=== PATIENT | male | born 1955 | race Caucasian/White ===

== ENCOUNTER 2017-02-15 21:54 | Emergency (ER) | payer MEDICAID, OTHER ==
[~2017-02-15] VITALS: Ht 180.3 cm; Wt 93.5 kg
[~2017-02-15 21:54] MED LIST: AMLODIPINE; LOSARTAN; PRAVASTATIN
[2017-02-15 22:02] VITALS: Ht 180.3 cm; Wt 93.5 kg
[2017-02-16] MEDS ORDERED: SOD CHLORIDE 0.9% 500 ML IV STA (01:09)
[2017-02-16] MEDS ORDERED: ONDANSETRON 4 MG INJ IV STA (01:09)
[2017-02-16] MEDS ORDERED: morphine 4 MG/ML VIAL IV STA (01:09)
[2017-02-16 01:50] LABS: ADD SCAN DIFF NO
[2017-02-16 01:57] LABS: BASOPHILS % 0.5 % (0.0-2.0); EOSINOPHILS # 0.2 10^3/ul (0.0-0.5); EOSINOPHILS % 2.7 % (0.0-7.0); HEMATOCRIT 40.7 % (42.0-52.0); HEMOGLOBIN 13.2 g/dl (14.0-18.0); MEAN CORPUSCULAR HEMOGLOBIN 26.2 pg (29.0-33.0); MEAN CORPUSCULAR HGB CONC 32.4 g/dl (32.0-37.0); MEAN CORPUSCULAR VOLUME 80.8 fl (82.0-101.0); MEAN PLATELET VOLUME 10.7 fl (7.4-10.4); MONOCYTE # 0.7 10^3/ul (0.3-0.9); MONOCYTES % 8.9 % (0.0-11.0); NEUTROPHIL # 4.7 10^3/ul (1.6-7.5); NEUTROPHILS % 61.6 % (39.0-77.0); PLATELET COUNT 329 10^3/UL (140-415); RED BLOOD COUNT 5.04 10^6/ul (4.70-6.10); RED CELL DISTRIBUTION WIDTH 13.7 % (11.5-14.5); WHITE BLOOD COUNT 7.6 10^3/ul (4.8-10.8)
[2017-02-16] MEDS ORDERED: OMEP20CA16 PO (02:00)
[2017-02-16] MEDS ORDERED: HYDR-902 PO (02:00)
[2017-02-16] MEDS ORDERED: ALPR0.5T6 PO (02:00)
[2017-02-16] MEDS ORDERED: PRAV20TA63 PO (02:00)
[2017-02-16] MEDS ORDERED: AMLO-147 PO (02:00)
[2017-02-16 02:32] LABS: ALBUMIN 4.7 g/dl (3.3-4.9); CHLORIDE 102 mmol/L (97-110); POTASSIUM 4.3 mmol/L (3.5-5.1); SODIUM 140 mmol/L (135-144)
[2017-02-16 02:34] LABS: CREATININE 0.97 mg/dl (0.61-1.24)
[2017-02-16 02:35] LABS: ALANINE AMINOTRANSFERASE 29 IU/L (13-69); ALBUMIN/GLOBULIN RATIO 1.42; ALKALINE PHOSPHATASE 85 IU/L (42-121); ANION GAP 16 (8-16); ASPARTATE AMINO TRANSFERASE 25 IU/L (15-46); BILIRUBIN,INDIRECT 0.1 mg/dl (0-1.1); BILIRUBIN,TOTAL 0.1 mg/dl (0.2-1.3); BLOOD UREA NITROGEN 18 mg/dl (7-20); CALCIUM 9.5 mg/dl (8.4-10.2); CARBON DIOXIDE 26 mmol/L (21-31); GLUCOSE 107 mg/dl (70-220)
[2017-02-16 02:48] LABS: TROPONIN-I < 0.012 ng/ml (0.00-0.12)
--- NOTE | 2017-02-16 03:11 | RADRPT ---
PROCEDURE: XR Chest. CLINICAL INDICATION: Pain. TECHNIQUE: Single frontal chest x-ray. COMPARISON: None. FINDINGS: The cardiomediastinal silhouette is unremarkable. There is no congestive heart failure.. No focal i nfiltrate is seen. There is no pleural effusion. There is no pneumothorax. The osseous structures are unremarkable. IMPRESSION: 1. No active disease. RPTAT: [facility]K .Gordy Loomis MD, Date Time Electronically viewed and signed by .Gordy Loomis MD, on 02/16/2017 03:11 .K/
--- NOTE | 2017-02-16 03:15 | RADRPT ---
PROCEDURE: CT Abdomen and pelvis without contrast. CLINICAL INDICATION: Abdominal pain. TECHNIQUE: CT scan of the abdomen and pelvis was performed on a multi-detector high-resolution CT scanner. Contiguous axial images were obtained from the lung bases to the ischial tuberosities wit hout intravenous contrast. Coronal and sagittal reformatted images were also obtained. Images were reviewed on the PACS workstation. One or more of the following dose reduction techniques were used: - Automated exposure control. - Adjustment of the mA and/or kV according to patient size. - Use of iterative reconstruction technique. Exam CTD/vol = 14.51 mGy. Total exam DLP = 1022.05 mGy-cm. COMPARISON: None. FINDINGS: Evaluation of the lung bases demonstrates a calcified granuloma within the right lower lobe. Abdomen: The liver is normal in size. There is no focal mass or dilatation of the biliary tree. T he gallbladder is not distended. The spleen, pancreas and bilateral adrenal glands are within lia l limits. Bilateral kidneys are normal in size with no contour deforming mass identified. There is no radiopaque renal or ureteral calculus identified. There is no hydronephrosis or hydroureter. T here is no retroperitoneal adenopathy. The abdominal aorta is of normal caliber with scattered athe rosclerotic calcifications. There is small umbilical hernia containing fat. There is no bowel obstruction or free air. A lia l appendix is identified. There are scattered colonic diverticuli without evidence of diverticuliti s. There is no ascites. Pelvis: The bladder is unremarkable. The prostate is moderately enlarged. There is no significant pelvic adenopathy or free fluid. Evaluation of the osseous structures demonstrates no suspicious lytic or blastic lesion. There are d efects of bilateral pars interarticularis of L5. IMPRESSION: No acute abnormality identified within the abdomen and pelvis. Colonic diverticulosis without evidence of diverticulitis. Small umbilical hernia containing fat. Moderately enlarged prostate. Vascular calcifications reflective of atherosclerosis. Bilateral pars defects of L5. .Juan Manuel Barber MD, MD Date Time Electronically viewed and signed by .Juan Manuel Barber MD, MD on 02/16/2017 03:14 .T/
[2017-02-16] MEDS ORDERED: LORA-441 PO (03:54)
--- NOTE | 2017-02-16 03:54 | ERD ---
ER Documentation Chief Complaint Date/Time DATE: 02/16/17 TIME: 03:50 Chief Complaint LT SIDE AP, ARM, FACE PAIN DENIES CP OR SOB /NUMBNESS HPI This is a 61-year-old male said he has arm jerking abdominal cramping and lower extremity jerking since yesterday. He describes it as feeling anxious and then having jerking movements of his arms that he can control. He said is been under a lot of stress lately. Denies any fevers or chills. Denies any nausea or vomiting. Denies any chest pain. Denies any shortness of breath or numbness. Denies any other current complaints. ROS All systems reviewed and are negative except as per history of present illness. Medications Home Meds Reported Medications Omeprazole* (Omeprazole*) 20 Mg Capsule.dr, 20 MG PO AC BREAKFAST, #60 CAP 02/16/17 Pravastatin Sodium* (Pravastatin Sodium*) 20 Mg Tablet, 20 MG PO HS, TAB 02/16/17 Amlodipine Besylate* (Amlodipine Besylate*) 10 Mg Tablet, 10 MG PO DAILY, #30 TAB 02/16/17 Hydrocodone/Acetaminophen ([place] 10-325 Tablet) 1 Each Tablet, 1 EACH PO for PAIN, TAB 02/16/17 Alprazolam* (Alprazolam*) 0.5 Mg Tablet, 0.5 MG PO Q8H Y for ANXIETY, TAB 02/16/17 Discontinued Reported Medications [Pravastatin] No Conflict Check 07/06/16 [Amlodipine] No Conflict Check 07/06/16 [Losartan] No Conflict Check 07/06/16 Allergies Allergies: Coded Allergies: No Known Allergy (Unverified , 02/16/17) PMhx/Soc History of Surgery: Yes (rt shoulder tendon sx 3 wks ago 01/2017) Anesthesia Reaction: No Hx Neurological Disorder: No Hx Respiratory Disorders: No Hx Cardiac Disorders: Yes (HTN, HYPERLIPIDEMIA) Hx Psychiatric Problems: No Hx Miscellaneous Medical Probl: No Hx Alcohol Use: Yes (occasionally) Hx Substance Use: No Hx Tobacco Use: Yes (quit years ago) Smoking Status: Former smoker Physical Exam Vitals Vital Signs Date Time Temp Pulse Resp B/P Pulse Ox O2 Delivery O2 Flow Rate FiO2 02/16/17 02:45 83 18 146/88 99 Room Air 02/16/17 01:17 88 12 158/93 100 Room Air 02/15/17 22:02 97.8 100 18 135/100 99 Physical Exam Const: [] Head: Atraumatic Eyes: Normal Conjunctiva ENT: Normal External Ears, Nose and Mouth. Neck: Full range of motion..~ No meningismus. Resp: Clear to auscultation bilaterally Cardio: Regular rate and rhythm, no murmurs Abd: Soft, non tender, non distended. Normal bowel sounds Skin: No petechiae or rashes Back: No midline or flank tenderness Ext: No cyanosis, or edema Neur: Awake and alert Psych: Normal Mood and Affect Result Diagram: 02/16/1712902/16/17129 Results 24 hrs Laboratory Tests Test 02/16/17 01:30 White Blood Count 7.610^3/ul Red Blood Count 5.0410^6/ul Hemoglobin 13.2g/dl Hematocrit 40.7% Mean Corpuscular Volume 80.8fl Mean Corpuscular Hemoglobin 26.2pg Mean Corpuscular Hemoglobin Concent 32.4g/dl Red Cell Distribution Width 13.7% Platelet Count 99460^3/UL Mean Platelet Volume 10.7fl Neutrophils % 61.6% Lymphocytes % 26.0% Monocytes % 8.9% Eosinophils % 2.7% Basophils % 0.5% Nucleated Red Blood Cells % 0.0/100WBC Neutrophils # 4.710^3/ul Lymphocytes # 2.010^3/ul Monocytes # 0.710^3/ul Eosinophils # 0.210^3/ul Basophils # 0.010^3/ul Nucleated Red Blood Cells # 0.010^3/ul Sodium Level 140mmol/L Potassium Level 4.3mmol/L Chloride Level 102mmol/L Carbon Dioxide Level 26mmol/L Anion Gap 16 Blood Urea Nitrogen 18mg/dl Creatinine 0.97mg/dl Glucose Level 107mg/dl Calcium Level 9.5mg/dl Total Bilirubin 0.1mg/dl Direct Bilirubin 0.00mg/dl Indirect Bilirubin 0.1mg/dl Aspartate Amino Transf (AST/SGOT) 25IU/L Alanine Aminotransferase (ALT/SGPT) 29IU/L Alkaline Phosphatase 85IU/L Troponin I < 0.012ng/ml Total Protein 8.0g/dl Albumin 4.7g/dl Globulin 3.30g/dl Albumin/Globulin Ratio 1.42 Lipase 102U/L Current Medications Medications (Trade) Dose Ordered Sig/[place]dal[place] Route PRN Reason Start Time Stop Time Status Last Admin Dose Admin Sodium Chloride (NS) 500 ml @ 500 mls/hr Q1H STAT IV 02/16/17 01:09 02/16/17 02:08 DC 02/16/17 01:42 Morphine Sulfate (morphine) 4 mg ONCE STAT IV 02/16/17 01:09 02/16/17 01:10 DC Ondansetron HCl (Zofran Inj) 4 mg ONCE STAT IV 02/16/17 01:09 02/16/17 01:10 DC Procedures/MDM EKG: Rate/Rhythm: Normal Sinus Rhythm QRS, ST, T-waves: No changes consistent w/ acute ischemia Impression: No evidence of ischemia or arrhythmia Chest X-ray 1V Interpreted by me: Soft Tissue: No acute abnormalities Bones: No acute abnormalities Mediastinum/Cardiac Silhouette/Lungs: No acute abnormalities Medical decision-makin-year-old gentleman was involuntary jerking movements of his arms and his legs likely secondary to stress. At this point is clinically stable for outpatient management. He will be discharged home. He is to return for any worsening of symptomology. We discharged with a short course of lorazepam Departure Diagnosis: Primary Impression: Anxiety Condition: Stable JOLENE MORALES February 16, 2017 03:54
[2017-02-16 04:20] VITALS: BP 147/82; PULSE 85; RESP 15; TEMP 98.6
== END 2017-02-16 04:20 | disposition home or self-care (01) ==
LOC: E/R 21:54
DX: F41.9 Anxiety disorder, unspecified (principal); R40.2142 Coma scale, eyes open, spontaneous, at arrival to emergency department; R40.2252 Coma scale, best verbal response, oriented, at arrival to emergency department; R40.2362 Coma scale, best motor response, obeys commands, at arrival to emergency department; I10 Essential (primary) hypertension; Z87.891 Personal history of nicotine dependence
CPT/HCPCS: 36415; 71010; 74176; 80053; 83690; 84484; 85025; 93005; 96374; 96375; 99285; J2405; J7040